=== PATIENT | male | born 1965 | race Caucasian/White ===

== ENCOUNTER 2022-07-16 15:45 | Emergency (ER) | payer SELFPAY ==
[~2022-07-16] VITALS: Ht 182.9 cm; Wt 127.3 kg
--- NOTE | 2022-07-18 17:41 | EKG ---
[facility] [address] [place], [place] [address] Signed Sinus tachycardia Otherwise normal ECG No previous ECGs available Confirmed by DARLEEN FIERRO MD ([id number] on 07/18/2022 5:40:49 PM Electronically Signed By: DARLEEN FIERRO MD 07/18/221740 PATIENT NAME: INOCENCIO YANG Electrocardiogram DATE OF : 69 PHYSICIAN: DARLEEN FIERRO MD REPORT #: [id number] REPORT IS CONFIDENTIAL AND NOT TO BE RELEASED WITHOUT AUTHORIZATION
== END 2022-07-16 18:23 | disposition home or self-care (01) ==
LOC: ED 15:45
DX: F15.129 Other stimulant abuse with intoxication, unspecified (principal)
CPT/HCPCS: 36415; 71045; 80053; 81003; 83605; 85025; 85610; 93005; 93010; 96360; 96361; 99285-25; G0480; J7030